=== PATIENT | male | born 2000 | race Two or more races ===

== ENCOUNTER 2022-09-23 01:43 | Emergency (ER) | payer SELFPAY ==
[2022-09-23] MEDS ORDERED: LORazepam 2 MG/ML SDV IM ONE (01:49)
== END 2022-09-23 02:26 ==
LOC: MW.ED 01:43
DX: F15.10 Other stimulant abuse, uncomplicated (principal); Z91.012 Allergy to eggs
CPT/HCPCS: 96372; 99283; J2060